=== PATIENT | male | born 1955 | race Caucasian/White ===

== ENCOUNTER 2022-01-31 20:58 | Day surgery (SDC) | payer BC ==
[2022-01-26 12:39] VITALS: BMI 25.8
[2022-01-31] MEDS: KETOROLAC TROMETHAMINE 30 MG/1 ML VIAL IVPUSH SCH (15:24)
[2022-01-31] MEDS: CEFAZOLIN 2 GM in DEXTROSE 5%-WATER - 50 ML IVPB SCH (17:16)
[~2022-01-31 20:58] MED LIST: ACETAMINOPHEN 1000 MG/100 ML BAG IVPB ONE; BUPIVACAINE HCL 50 ML ONE; BUPIVACAINE HCL/PF 0.5% (5 MG/ML) 30 ML VIAL IJ ONE; BUPIVACAINE LIPOSOME/PF (EXPAREL) 266 MG/20 ML VIAL ONE; CEFAZOLIN 2 GM in DEXTROSE 5%-WATER - 50 ML IVPB ONE; DEXAMETHASONE SOD PHOSPHATE 4 MG/1 ML VIAL ONE; DEXTROSE 5%-WATER - 50 ML IVPB ONE; LACTATED RINGERS SOLUTION 1,000 ML IV SCH; MAG HYDROX/AL HYDROX/SIMETH 30 ML UNIT-DOSE CUP PO PRN; MAGNESIUM HYDROX 2400MG/30ML ORAL SUSPENSION 30 ML CUP PO PRN; MIDAZOLAM HCL 2 MG/2 ML SINGLE DOSE VIAL ONE; ONDANSETRON 4 MG/2 ML VIAL IVPUSH PRN; ONDANSETRON 4 MG/2 ML VIAL ONE; PROPOFOL 20 ML ONE; TRANEXAMIC ACID 1000 MG/10 ML VIAL IVPUSH ONE; TRANEXAMIC ACID 1000 MG/10 ML VIAL ONE; ceFAZolin SODIUM 1 GM VIAL ONE; oxyCODONE HCL 5 MG TABLET PO PRN
[2022-01-31] MEDS: FAMOTIDINE 20 MG TABLET PO SCH (21:55)
[2022-01-31] MEDS: ACETAMINOPHEN 500 MG TABLET (FP) PO SCH (21:55)
[2022-01-31] MEDS: ASPIRIN COATED 81 MG TABLET.EC PO SCH (21:55)
[2022-01-31] MEDS: SENNOSIDES/DOCUSATE COMBO (SENNA PLUS) TABLET (UD) PO SCH (21:55)
[2022-01-31] MEDS ORDERED: ATORVASTATIN CA 20 MG TABLET (FP) PO SCH (22:00)
[2022-02-01] MEDS ORDERED: ceFAZolin SODIUM 1 GM VIAL ONE (01:21)
[2022-02-01] MEDS ORDERED: DEXTROSE 5%-WATER - 50 ML IVPB ONE (01:21)
[2022-02-01] MEDS: CEFAZOLIN 2 GM in DEXTROSE 5%-WATER - 50 ML IVPB SCH (01:52)
[2022-02-01] MEDS: ACETAMINOPHEN 500 MG TABLET (FP) PO SCH ×3 (06:20→14:52)
[2022-02-01] MEDS: KETOROLAC TROMETHAMINE 30 MG/1 ML VIAL IVPUSH SCH ×5 (06:22→14:51)
[2022-02-01 07:54] LABS: CALCIUM 8.7 mg/dl (8.5-10); CREATININE 0.7 mg/dl (0.55-1.3)
[2022-02-01 09:33] LABS: HEMATOCRIT 34.8 % (35.4-49); HEMOGLOBIN 12.1 GM/dL (11.7-16.9); MCH 30.4 pg (25.7-33.7); MCHC 34.7 g/dl (32.0-35.9); MEAN CELL VOLUME 87.6 fl (80-96); MEAN PLT VOLUME 7.8 fl (7.5-11.1); PLATELET COUNT 193 10^3/uL (134-434); RBC 3.98 M/mm3 (4.00-5.60); RDW 13.8 % (11.9-15.9); WHITE BLOOD COUNT 10.9 K/mm3 (4.0-10.0)
[2022-02-01] MEDS: SENNOSIDES/DOCUSATE COMBO (SENNA PLUS) TABLET (UD) PO SCH (09:48)
[2022-02-01] MEDS: ASPIRIN COATED 81 MG TABLET.EC PO SCH (09:48)
[2022-02-01] MEDS: FAMOTIDINE 20 MG TABLET PO SCH (09:48)
[2022-02-01] MEDS ORDERED: RAMIPRIL 5 MG CAPSULE PO SCH (10:00)
[2022-02-01] MEDS ORDERED: MULTIVITAMINS (DAILY MVI) TABLET (FP) PO SCH (10:00)
[2022-02-01 14:10] VITALS: BP 108/61; PULSE 72; TEMP 98
== END 2022-02-01 15:30 | disposition home or self-care (01) ==
LOC: FM/S 20:58 → FASUSAT 20:58
PROVIDERS: ATTEND Orthopaedic Surgery
PROC: 0SRC0J9 Replacement of Right Knee Joint with Synthetic Substitute, Cemented, Open Approach (ICD-10-PCS; principal; 2022-01-31 10:14)
DX: M17.11 Unilateral primary osteoarthritis, right knee (principal)
CPT/HCPCS: 27447; C1776; 36415; 73560-TC-RT-FY; 80048; 85027; 88305-TC; 88311-TC; 94760; 97010-GP; 97116-GP; 97162-GP